=== PATIENT | female | born 1985 | race Caucasian/White ===

== ENCOUNTER 2017-10-09 09:16 | Emergency (ER) | payer OTHER ==
[2017-10-09 10:10] VITALS: BP 139/104
[2017-10-09] MEDS ORDERED: Ketorolac INJ* 60 MG/2 ML VIAL IM ONE (10:22)
--- NOTE | 2017-10-09 10:25 | UC ---
UC General HPI - HPI Summary HPI Summary: pt is c/o pain to R side of her neck. it began when she turned her head to look to her left. it began 3 days ago. she has occasional sharp pains into her upper arm. pt notes some numb/tingle R hand but states I have carpal tunnel in hands. self tx with occasion heat, cold and advil. - History of Current Complaint Chief Complaint: UCGeneralIllness Stated Complaint: NECK/RIGHT SHOULDER PAIN Time Seen by Provider: 10/09/17 10:09 Hx Obtained From: Patient Hx Last Menstrual Period: 08/23/17 Onset/Duration: Sudden Onset Timing: Constant Pain Intensity: 5 Aggravating: turning head to R Associated Signs & Symptoms: Negative: Edema, Fever, Headache - Allergy/Home Medications Allergies/Adverse Reactions: Allergies Allergy/AdvReac Type Severity Reaction Status Date / Time Penicillins Allergy Anaphylatic Verified 10/09/17 10:00 Shock PMH/Surg Hx/FS Hx/Imm Hx - Additional Past Medical History Additional PMH: carpal tunnel R hand, eczema. - Surgical History Surgical History: Yes Surgery Procedure, Year, and Place: b/l carpal tunnel - Social History Occupation: Employed Full-time Alcohol Use: None Substance Use Type: None Smoking Status (MU): Current Every Day Smoker Type: Cigarettes Amount Used/How Often: 6 cigs/day - Immunization History Vaccination Up to Date: Yes Review of Systems Constitutional: Negative Skin: Negative Eyes: Negative ENT: Negative Respiratory: Negative Cardiovascular: Negative Gastrointestinal: Negative Genitourinary: Negative Motor: Negative Neurovascular: Negative Musculoskeletal: Other: - R neck pain Neurological: Negative Psychological: Negative Is Patient Immunocompromised?: No All Other Systems Reviewed And Are Negative: Yes Physical Exam Triage Information Reviewed: Yes Appearance: Well-Appearing Vital Signs: Initial Vital Signs Temp 98.1 F 10/09/17 10:01 Pulse 75 10/09/17 10:01 Resp 16 10/09/17 10:01 BP 139/104 10/09/17 10:01 Pulse Ox 100 10/09/17 10:01 Vital Signs Reviewed: Yes Eye Exam: Normal ENT: Positive: Normal ENT inspection Neck: Positive: No Lymphadenopathy, Other: - R trapezius muscle spasm. No c- spine tenderness. Pt favors head turned to L but rom is intact.. Negative: Nuchal Rigidity Respiratory: Positive: Lungs clear, Normal breath sounds Cardiovascular: Positive: RRR, No Murmur, Pulses Normal Abdomen Description: Positive: Nontender, No Organomegaly, Soft Bowel Sounds: Positive: Present Musculoskeletal: Positive: No Edema, Other: - BUE's: full s/v/m function with 5/ 5 strength and 2+ reflexes x4. Neurological: Positive: Alert Psychological: Positive: Age Appropriate Behavior Skin Exam: Normal Re-Evaluation - Re-Evaluation Second Eval Re-Evaluation Time: 10:45 Change: Improved - pt notes not as stiff and moving her neck more freely. Course/Dx - Course Course Of Treatment: No formal dx HTN. Pt notes goes up with anxiety and pain. Repeat BP during visit is improved. Pt states has f/u new pcp next month and is going to have that checked. No concern for fx or infection. Exam c/w trapezius mm spasm. Hx suggest a component of radiculopathy. Will tx nsaid, prn mm relaxor and refer to PT. - Differential Dx - Multi-Symptom Provider Diagnoses: R trapezius muscle spasm Discharge - Sign-Out/Discharge Documenting (check all that apply): Discharge - Discharge Plan Condition: Stable Disposition: HOME Prescriptions: Cyclobenzaprine TAB* [Flexeril 10 MG TAB*] 10 mg PO TID PRN 7 Days #10 tab PRN Reason: Spasms - Muscle Naproxen [Naprosyn] 500 mg PO BID #10 tablet Forms: *Work Release Referrals: Yola Wade MD [Primary Care Provider] - Additional Instructions: FOLLOW UP WITH YOUR DOCTOR SCHEDULED NEXT MONTH - Billing Disposition and Condition Condition: STABLE Disposition: HOME
== END 2017-10-09 10:51 | disposition home or self-care (01) ==
LOC: UCCORT 09:16
DX: M62.838 Other muscle spasm (principal); F17.210 Nicotine dependence, cigarettes, uncomplicated; Z88.0 Allergy status to penicillin
CPT/HCPCS: 96372; 99202; G0463; J1885

== ENCOUNTER 2018-03-02 10:36 | Emergency (ER) | payer OTHER ==
[2018-03-02] MEDS ORDERED: NS 0.9% 1000 ML* 1,000 ML BOLUS ONE (11:30)
[2018-03-02] MEDS ORDERED: Ondansetron INJ* 2 MG/ML VIAL IV ONE (11:30)
[2018-03-02] MEDS ORDERED: Famotidine IV* 10 MG/ML 2 ML (20 mg) IV SLOW PU ONE (11:30)
--- NOTE | 2018-03-02 11:35 | UC ---
Abdominal Pain Female HPI - HPI Summary HPI Summary: The patient is a 32-year-old female of diarrhea about 3 AM. She has had about 10-12 episodes of diarrhea since the onset of symptoms. She later developed left upper quadrant abdominal pain. Followed by nausea and 4 episodes of vomiting. Since the vomiting started it has felt like she has this foreign body in the right side of her neck. SHe has no fever or chills. She does have a history of kidney stones. - History of Current Complaint Chief Complaint: UCGI Stated Complaint: ABD PAIN,DIARRHEA,VOMITING Time Seen by Provider: 03/02/18 11:13 Hx Obtained From: Patient Hx Last Menstrual Period: 02/06/18 Onset/Duration: Gradual Onset, Lasting Hours Timing: Constant Severity Initially: Mild Severity Currently: Moderate Pain Intensity: 6 Pain Scale Used: 0-10 Numeric Location: Discrete At: LUQ Radiates: No Character: Unable to describe Aggravating Factor(s): Nothing Alleviating Factor(s): Nothing Associated Signs and Symptoms: Positive: Decreased Appetite, Nausea, Vomiting, Diarrhea Allergies/Adverse Reactions: Allergies Allergy/AdvReac Type Severity Reaction Status Date / Time Penicillins Allergy Anaphylatic Verified 10/09/17 10:00 Shock Home Medications: Home Medications hydrOXYzine HCl [Hydroxyzine HCl] 10 mg PO TID PRN 03/02/18 [History Confirmed 03/02/18] PMH/Surg Hx/FS Hx/Imm Hx Previously Healthy: Yes - Surgical History Surgical History: Yes Surgery Procedure, Year, and Place: b/l carpal tunnel - Family History Known Family History: Positive: Hypertension, Diabetes, Other - kidney stone - Social History Alcohol Use: None Substance Use Type: None Smoking Status (MU): Current Every Day Smoker Type: Cigarettes Amount Used/How Often: 6 cigs/day - Immunization History Vaccination Up to Date: Yes Review of Systems Constitutional: Negative Skin: Negative Eyes: Negative ENT: Negative Respiratory: Negative Cardiovascular: Negative Gastrointestinal: Abdominal Pain, Vomiting, Diarrhea, Nausea Genitourinary: Negative Motor: Negative Neurovascular: Negative Musculoskeletal: Negative Neurological: Negative Psychological: Negative Is Patient Immunocompromised?: No All Other Systems Reviewed And Are Negative: Yes Physical Exam Triage Information Reviewed: Yes Appearance: Well-Appearing, No Pain Distress, Well-Nourished Vital Signs: Initial Vital Signs Temp 97.2 F 03/02/18 10:44 Pulse 81 03/02/18 10:44 Resp 17 03/02/18 10:44 BP 152/102 03/02/18 10:44 Pulse Ox 99 03/02/18 10:44 Vital Signs Reviewed: Yes Eyes: Positive: Conjunctiva Clear ENT: Positive: Hearing grossly normal. Negative: Pharyngeal erythema, Nasal congestion, Tonsillar exudate, Trismus, Muffled voice, Hoarse voice Neck: Positive: Supple, Nontender, No Lymphadenopathy Respiratory: Positive: Lungs clear, Normal breath sounds, No respiratory distress Cardiovascular: Positive: RRR Abdomen Description: Positive: Soft. Negative: Nontender - LLQ>LUQ abd pain, CVA Tenderness (R), CVA Tenderness (L) Bowel Sounds: Positive: Present Musculoskeletal: Positive: ROM Intact, No Edema Neurological: Positive: Alert Psychological Exam: Normal Skin Exam: Normal Diagnostics - Radiology No standard instances Xray Interpretation: No Acute Changes - CT abd and pelvis Radiology Interpretation Completed By: Radiologist Re-Evaluation - Re-Evaluation First Eval Re-Evaluation Time: 13:26 Change: Improved - no abd pain or nausea Abd Pain Female Course/Dx - Course Course Of Treatment: UA ++leuks, ++RBCs - Differential Dx/Diagnosis Differential Diagnosis: Other - gastroenteritis Provider Diagnoses: abdominal pain of uncertain cause Discharge - Sign-Out/Discharge Documenting (check all that apply): Patient Departure - Discharge Plan Condition: Stable Disposition: HOME Prescriptions: Ondansetron TAB* [Zofran Tab*] 4 mg PO Q6H PRN #10 tab PRN Reason: Nausea Patient Education Materials: Gastroenteritis (ED) Forms: *Work Release Referrals: Yola Wade MD [Primary Care Provider] - Additional Instructions: rest nothing by mouth for another 2-4 hours then clear liquids slowly advance as tolerate recheck in Er for new or worsening symptoms recheck tomorrow if not better a urine culture is pending see your MD about your blood in urine in 1-2 weeks - Billing Disposition and Condition Condition: STABLE Disposition: Home
[2018-03-02 12:44] VITALS: BP 144/88
--- NOTE | 2018-03-02 12:52 | RAD ---
CLINICAL HISTORY: LLQ pain/hematuria COMPARISON: None TECHNIQUE: Multiple contiguous axial CT scans were obtained of the abdomen and pelvis, without intravenous contrast enhancement. Coronal and sagittal multiplanar reformations are submitted for review. Oral contrast was not administered. FINDINGS: The study is limited by the lack of intravenous contrast. This limits evaluation of the solid organs and vasculature. LUNG BASES: The lung bases are clear. LIVER: The liver is normal in shape, size, contour, and attenuation. BILE DUCTS: There is no intrahepatic or extrahepatic biliary dilatation. GALLBLADDER: The gallbladder is normal, without pericholecystic inflammatory change. PANCREAS: The pancreas is normal, without mass or ductal dilatation. SPLEEN: Normal in size and appearance. UPPER GI TRACT: Evaluation of the gastrointestinal tract is limited by incomplete gastric distention. The upper GI tract is unremarkable. SMALL BOWEL AND MESENTERY: The small bowel is normal in contour, course, and caliber. There is no obstruction or dilatation. COLON: The colon is normal in contour, course, caliber. There is no pericolonic inflammatory change. There is a tubular, vermiform, hollow viscus that is blind ending, and originates from the cecum, consistent with a normal appendix. There is no periappendiceal inflammatory change. This is best seen on axial images 136 through 143. ADRENALS: Normal bilaterally. KIDNEYS: The kidneys are normal in shape, size, contour, and axis. There is no hydronephrosis or nephrolithiasis. BLADDER: The bladder is incompletely distended but is grossly normal. PELVIC ORGANS: The uterus and adnexa are grossly normal for technique. Contraceptive inserts are noted. AORTA: The aorta is normal. IVC: Unremarkable LYMPH NODES: There is no lymphadenopathy by size criteria. ABDOMINAL WALL: There is no evidence for abdominal wall hernia. BONES AND SOFT TISSUES: Unremarkable OTHER: None IMPRESSION: NO HYDRONEPHROSIS OR NEPHROLITHIASIS.
[2018-03-02] MEDS ORDERED: Ketorolac INJ* 30 MG/ML 1 ML VIAL IV ONE (12:59)
== END 2018-03-02 13:32 | disposition home or self-care (01) ==
LOC: UCCORT 10:36
DX: R10.9 Unspecified abdominal pain (principal); F17.210 Nicotine dependence, cigarettes, uncomplicated; Z87.440 Personal history of urinary (tract) infections; Z88.0 Allergy status to penicillin
CPT/HCPCS: 74176; 81003; 84702; 87086; 96361; 96375; 99212; G0463; J1885; J2405

== ENCOUNTER 2018-07-20 09:56 | Emergency (ER) | payer OTHER ==
[2018-07-20 10:34] VITALS: BP 139/89
--- NOTE | 2018-07-20 11:18 | UC ---
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 she has the cyclebenzaprine and naproxyn for this purpose. she called in sick today and has tomorrow off. -shoulder is popping if she flexes or abducts. never had an issue w/ it before. has numbing going down right arm. pain only occurs w/ popping, but numbing is constant. -denies . h/o essure - History of Current Complaint Chief Complaint: UCUpperExtremity Stated Complaint: RIGHT SHOULDER COMPLAINT Time Seen by Provider: 07/20/18 11:07 Hx Last Menstrual Period: ~06/29/18 Pain Intensity: 8 - Allergies/Home Medications Allergies/Adverse Reactions: Allergies Allergy/AdvReac Type Severity Reaction Status Date / Time Penicillins Allergy Anaphylatic Verified 07/20/18 10:29 Shock raspberry Allergy Anaphylatic Verified 07/20/18 10:29 Shock strawberry Allergy Anaphylatic Verified 07/20/18 10:29 Shock Home Medications: Home Medications Cyclobenzaprine (NF) [Cyclobenzaprine 5 MG (NF)] 5 mg PO TID PRN 07/20/18 [ History Confirmed 07/20/18] Naproxen [Naprosyn 500 mg tab] 500 mg PO BID PRN 07/20/18 [History Confirmed 12/01] PMH/Surg Hx/FS Hx/Imm Hx Previously Healthy: Yes - Surgical History Surgical History: Yes Surgery Procedure, Year, and Place: Bilateral Carpal Tunnel Release, 2006 - Family History Known Family History: Positive: Hypertension, Diabetes, Other - kidney stone - Social History Alcohol Use: None Substance Use Type: None Smoking Status (MU): Light Every Day Tobacco Smoker Type: Cigarettes Amount Used/How Often: ~1/3 PPD Length of Time of Smoking/Using Tobacco: Since Age 14 Have You Smoked in the Last Year: Yes - Immunization History Vaccination Up to Date: Yes Review of Systems All Other Systems Reviewed And Are Negative: Yes Constitutional: Positive: Negative Skin: Positive: Negative Eyes: Positive: Negative ENT: Positive: Negative Respiratory: Positive: Negative Cardiovascular: Positive: Negative Gastrointestinal: Positive: Negative Genitourinary: Positive: Negative Motor: Positive: Negative Neurovascular: Positive: Negative Musculoskeletal: Positive: Arthralgia Neurological: Positive: Paresthesia Psychological: Positive: Negative Is Patient Immunocompromised?: No Physical Exam Triage Information Reviewed: Yes Appearance: Pain Distress - appears to be in pain Vital Signs: Initial Vital Signs Temp 97.9 F 07/20/18 10:27 Pulse 72 07/20/18 10:27 Resp 18 07/20/18 10:27 BP 139/89 07/20/18 10:27 Pulse Ox 99 07/20/18 10:27 Vital Signs Reviewed: Yes Eye Exam: Normal Neck exam: Normal Neck: Positive: Supple, Nontender, No Lymphadenopathy Respiratory Exam: Normal Respiratory: Positive: Lungs clear, Normal breath sounds, No respiratory distress, No accessory muscle use Cardiovascular Exam: Normal Cardiovascular: Positive: RRR, No Murmur, Pulses Normal Musculoskeletal: Positive: Strength Intact, ROM Intact, Other: - active FROM in all planes, neg miranda. neg empty can. non tender. able to reporduce popping w / flexion & abduction that reproduces pain. CR brisk. sens intact to LT rt UE Neurological Exam: Normal Psychological Exam: Normal Skin Exam: Normal Upper Extremity Course/Dx - Course Course Of Treatment: Rt shoulder xray - neg. -ice pack applied here. - declines OOW note, but will give one for 07/22/18 as she reports at 5:30 AM. hopefully she will be seen by ortho that day to determine further. -ice, rest, sling - Differential Dx/Diagnosis Differential Diagnosis/HQI/PQRI: Bursitis, Strain, Sprain Provider Diagnosis: Right shoulder pain Discharge - Sign-Out/Discharge Documenting (check all that apply): Patient Departure All imaging exams completed and their final reports reviewed: Yes - Discharge Plan Condition: Stable Disposition: HOME Patient Education Materials: Shoulder Pain (ED) Forms: *Work Release Referrals: Yola Wade MD [Primary Care Provider] - Lucien Sheehan MD [Medical Doctor] - 2 Days Additional Instructions: -Xray rt shoulder done today -ice, rest, sling. - Billing Disposition and Condition Condition: STABLE Disposition: Home
== END 2018-07-20 12:51 | disposition home or self-care (01) ==
LOC: UCCORT 09:56
DX: M25.511 Pain in right shoulder (principal); Z88.0 Allergy status to penicillin; F17.210 Nicotine dependence, cigarettes, uncomplicated
CPT/HCPCS: 99212; G0463

== ENCOUNTER 2019-08-04 15:14 | Emergency (ER) | payer OTHER ==
[2019-08-04 15:24] VITALS: BP 140/96
[2019-08-04 15:36] LABS: Influenza B Molecular POSITIVE (Negative)
--- NOTE | 2019-08-04 15:51 | UC ---
Throat Pain/Nasal Joon HPI - HPI Summary HPI Summary: 33-year-old woman comes in with a chief complaint of upper respiratory tract infection symptoms ear pain and body aches. All started about 3 days ago. She does have a sore throat and sinus congestion. Both of her ears hurt. No fevers measured. [id number] medications to help some with the symptoms. Patient's daughter has influenza. - History of Current Complaint Chief Complaint: UCRespiratory Stated Complaint: EAR PAIN,TOUSSAINT PAIN,CHEST CONGESTION Time Seen by Provider: 08/04/19 15:27 Hx Last Menstrual Period: 07/21/19 Pain Intensity: 5 - Allergies/Home Medications Allergies/Adverse Reactions: Allergies Allergy/AdvReac Type Severity Reaction Status Date / Time Penicillins Allergy Anaphylatic Verified 08/04/19 15:20 Shock raspberry Allergy Anaphylatic Verified 08/04/19 15:20 Shock strawberry Allergy Anaphylatic Verified 08/04/19 15:20 Shock Home Medications: Home Medications l-Norgest/E.estradiol-E.estrad [Camrese Lo Tablet] 1 tab DAILY 08/04/19 [ History Confirmed 08/04/19] metroNIDAZOLE * [Flagyl] 1 tab BID 08/04/19 [History Confirmed 08/04/19] PMH/Surg Hx/FS Hx/Imm Hx Previously Healthy: Yes - Surgical History Surgical History: Yes Surgery Procedure, Year, and Place: Bilateral Carpal Tunnel Release, 2005 - Family History Known Family History: Positive: Hypertension, Diabetes, Other - kidney stone - Social History Alcohol Use: None Substance Use Type: None Smoking Status (MU): Light Every Day Tobacco Smoker Type: Cigarettes Amount Used/How Often: ~1/3 PPD Length of Time of Smoking/Using Tobacco: Since Age 14 Have You Smoked in the Last Year: Yes - Immunization History Vaccination Up to Date: Yes Review of Systems All Other Systems Reviewed And Are Negative: Yes Constitutional: Positive: Other - SEE HPI Skin: Positive: Negative Eyes: Positive: Negative ENT: Positive: Sore Throat, Ear Ache, Nasal Discharge, Sinus Congestion, Sinus Pain/Tenderness Respiratory: Positive: Negative Cardiovascular: Positive: Negative Gastrointestinal: Positive: Negative Genitourinary: Positive: Other - Patient is on metronidazole for bacterial vaginosis Motor: Positive: Negative Neurovascular: Positive: Negative Musculoskeletal: Positive: Myalgia Neurological: Positive: Headache Psychological: Positive: Negative Is Patient Immunocompromised?: No Physical Exam Triage Information Reviewed: Yes Appearance: No Pain Distress, Well-Nourished, Ill-Appearing - MILD Vital Signs: Initial Vital Signs Temp 98.3 F 08/04/19 15:22 Pulse 84 08/04/19 15:22 Resp 16 08/04/19 15:22 BP 140/96 08/04/19 15:22 Pulse Ox 100 08/04/19 15:22 Vital Signs Reviewed: Yes Eye Exam: Normal Eyes: Positive: Conjunctiva Clear ENT: Positive: Pharyngeal erythema, Nasal congestion, Nasal drainage, Other - Both TMs are mildly opaque. Right TM is somewhat erythematous. Neck: Positive: Supple Respiratory: Positive: Lungs clear, Normal breath sounds, No respiratory distress Cardiovascular: Positive: RRR Musculoskeletal: Positive: Strength Intact, ROM Intact Neurological: Positive: Alert, Muscle Tone Normal Psychological: Positive: Normal Response To Family, Age Appropriate Behavior Skin Exam: Normal Throat Pain/Nasal Course/Dx - Course Course Of Treatment: DISCUSSED VIRAL VERSES BACTERIAL INFECTIONS AND THE ROLE OF ANTIBIOTICS. THE PATIENT PREFERS TO BE ON ANTIBIOTICS AT THIS TIME. Because the patient symptoms started more than 48 hours ago will not treat with Tamiflu. Otherwise symptomatic treatment. Follow-up primary care doctor. Get reevaluated if worse or any questions or concerns. - Differential Dx/Diagnosis Provider Diagnosis: Influenza, Sinusitis, Acute serous otitis media Discharge ED - Sign-Out/Discharge Documenting (check all that apply): Patient Departure All imaging exams completed and their final reports reviewed: No Studies - Discharge Plan Condition: Stable Disposition: HOME Prescriptions: Clindamycin Cap(NF) [Clindamycin Cap 300 mg Cap(NF)] 300 mg PO TID #30 cap Patient Education Materials: Sinusitis (ED), Influenza (ED), Serous Otitis Media (ED) Referrals: Yola Wade MD [Primary Care Provider] - Additional Instructions: FOLLOW UP WITH YOUR DOCTOR IF NOT COMPLETELY IMPROVED. GET REEVALUATED SOONER IF NOT IMPROVING OR WORSE OR ANY QUESTIONS OR CONCERNS. - Billing Disposition and Condition Condition: STABLE Disposition: Home
== END 2019-08-04 15:59 | disposition home or self-care (01) ==
LOC: UCCORT 15:14
DX: J32.9 Chronic sinusitis, unspecified (principal); J11.1 Influenza due to unidentified influenza virus with other respiratory manifestations; H65.03 Acute serous otitis media, bilateral; N76.0 Acute vaginitis; F17.210 Nicotine dependence, cigarettes, uncomplicated; Z88.0 Allergy status to penicillin; Z91.018 Allergy to other foods
CPT/HCPCS: 99212; G0463

== ENCOUNTER 2019-08-13 10:47 | Emergency (ER) | payer OTHER ==
[2019-08-13 11:47] VITALS: BP 146/94
--- NOTE | 2019-08-13 12:46 | UC ---
Upper Extremity HPI - HPI Summary HPI Summary: slipped on ice this morning and fell onto her outstretched left hand, with persistent pain and a numb sensation in the upper arm and in the thumb and wrist. Mild swelling in the hand, with very superficial abrasion of the dorsal surface of the hand. - History of Current Complaint Chief Complaint: UCUpperExtremity Stated Complaint: S/P FALL LT ARM INJURY Time Seen by Provider: 08/13/19 12:39 Hx Obtained From: Patient Hx Last Menstrual Period: 06/20/19 Onset/Duration: Sudden Onset Severity Initially: Mild Severity Currently: Mild Pain Intensity: 4 Location Of Pain: Is Discrete @ - left wrist and left upper arm Aggravating Factor(s): Movement Alleviating Factor(s): OTC Meds - used acetaminophen Associated Signs And Symptoms: Positive: Numbness/Tingling - in the proximal forearm. Related History: Dominant Hand Right - Risk Factors Non-Orthopedic Risk Factor: Negative - Allergies/Home Medications Allergies/Adverse Reactions: Allergies Allergy/AdvReac Type Severity Reaction Status Date / Time Penicillins Allergy Anaphylatic Verified 08/13/19 11:43 Shock raspberry Allergy Anaphylatic Verified 08/13/19 11:43 Shock strawberry Allergy Anaphylatic Verified 08/13/19 11:43 Shock PMH/Surg Hx/FS Hx/Imm Hx Previously Healthy: Yes - Surgical History Surgical History: Yes Surgery Procedure, Year, and Place: Bilateral Carpal Tunnel Release, 2005 - Family History Known Family History: Positive: Hypertension, Diabetes, Other - kidney stone - Social History Occupation: Employed Full-time Lives: With Family Alcohol Use: None Substance Use Type: None Smoking Status (MU): Light Every Day Tobacco Smoker Type: Cigarettes Amount Used/How Often: ~1/3 PPD Length of Time of Smoking/Using Tobacco: Since Age 14 Have You Smoked in the Last Year: Yes - Immunization History Vaccination Up to Date: Yes Review of Systems All Other Systems Reviewed And Are Negative: Yes Constitutional: Positive: Negative Skin: Positive: Negative Eyes: Positive: Negative ENT: Positive: Negative Respiratory: Positive: Negative Cardiovascular: Positive: Negative Gastrointestinal: Positive: Negative Motor: Positive: Decreased ROM - left upper arm. Musculoskeletal: Positive: Arthralgia, Myalgia Neurological: Positive: Paresthesia - left arm has a numb sensation, non- dermatoma Psychological: Positive: Negative Is Patient Immunocompromised?: No Physical Exam Triage Information Reviewed: Yes Appearance: Well-Appearing, Pain Distress - mild Vital Signs: Initial Vital Signs Temp 97.2 F 08/13/19 11:43 Pulse 68 08/13/19 11:43 Resp 16 08/13/19 11:43 BP 146/94 08/13/19 11:43 Pulse Ox 98 08/13/19 11:43 Vital Signs Reviewed: Yes Eye Exam: Normal Dental Exam: Normal Neck exam: Normal Respiratory Exam: Normal Respiratory: Positive: Lungs clear, Normal breath sounds Cardiovascular: Positive: RRR, No Murmur Musculoskeletal Exam: Other - NO TTP along clavicle or left shoulder joint. No TTO in elbow, tenderness left distal radius and radial border of left wrist, with mild swelling of the dorsum of the hand, but not the wrist. Musculoskeletal: Positive: ROM Intact - at left shoulder, left elbow. Left wrist with full rom with pain in the first ALF joint with palpation. Neurological Exam: Normal Neurological: Positive: Alert Psychological Exam: Normal Skin Exam: Normal Diagnostics - Radiology No standard instances Radiology Interpretation Completed By: Radiologist - Patient Name: YOLA ELIZALDE Medical Record#: [id number] Ordering Physician: Glory Medina MD Acct.#: [id number] : Age: 33 Sex: F Location: [facility] Exam Date: 08/13/19 1246 ADM Status: REG ER Order Information: WRIST LEFT 3+ VWS Accession Number : [id number] CPT: 34723 HISTORY: pain left wrist post fall on outstretched hand . COMPARISONS: None relevant available at the time of dictation. VIEWS: 3, Frontal, lateral, and oblique views of the left breast FINDINGS: BONE DENSITY: Normal. BONES: There is no displaced fracture. JOINTS: There is no arthropathy. ALIGNMENT: There is no dislocation. SOFT TISSUES: Unremarkable. OTHER FINDINGS: None. IMPRESSION: NO ACUTE OSSEOUS INJURY. IF SYMPTOMS PERSIST, RECOMMEND REPEAT IMAGING. < Electronically signed by Ritesh Salmeron MD in [place]> 08/13/19 1322 Dictated By: Ritesh Salmeron MD Dictated Date/Time: 08/13/19 1319 Transcribed Date/ Time: 08/13/19 1319 Copy to: CC:Glory Medina MD; Yola Wade MD Imaging - [facility] - [facility] [address] [place] [id number] [place] [id number] [place] [id number] ph [phone]) ph ([phone]) ph ([phone] ) This report is only to be considered final once signed by the Provider( s) as displayed in the "<Electronically Signed by >" field (s). Absence of a signature indicates the report is in a draft status and still needs to be finalized. In the event this document was created by someone other than the signing Provider, the individual initiating the document will be listed in the "Entered by:" or "Dictated by:" [email or web address]. 1 of 1 Upper Extremity Course/Dx - Course Course Of Treatment: ice, iburofen, rom exercises - Differential Dx/Diagnosis Differential Diagnosis/HQI/PQRI: Contusion, Strain, Sprain Provider Diagnosis: Left wrist sprain Discharge ED - Sign-Out/Discharge Documenting (check all that apply): Patient Departure All imaging exams completed and their final reports reviewed: Yes - Discharge Plan Condition: Stable Disposition: HOME Patient Education Materials: Wrist Sprain (ED) Referrals: Yola Wade MD [Primary Care Provider] - Additional Instructions: Ice the sore areas regularly, and sometimes alternating with heat can help to relieve pain. Use ibuprofen 600mg up to 3 times per day, stopping if it causes stomach upset. Follow up if you do not have improvement in 5 to 7 days. - Billing Disposition and Condition Condition: STABLE Disposition: Home
[2019-08-13] MEDS ORDERED: Ibuprofen TAB* 600 MG PO ONE (12:47)
== END 2019-08-13 13:33 | disposition home or self-care (01) ==
LOC: UCCORT 10:47
DX: S63.502A Unspecified sprain of left wrist, initial encounter (principal); W00.0XXA Fall on same level due to ice and snow, initial encounter; Y92.9 Unspecified place or not applicable; F17.210 Nicotine dependence, cigarettes, uncomplicated; Z88.0 Allergy status to penicillin; Z91.018 Allergy to other foods
CPT/HCPCS: 99212; A9270-GY; G0463